=== PATIENT | male | born 1965 ===

== ENCOUNTER 2025-03-29 12:47 | Emergency (ER) | payer MEDICARE ==
[2025-03-29] MEDS ORDERED: Sodium Chloride 0.9% 10 ML Syringe FLUSH PRN (12:57)
[2025-03-29 13:11] LABS: MEAN PLATELET VOLUME 10.3 fL (6.0-10.0); PLATELET COUNT,PLT 196.0 K/uL (150-400); RED BLOOD CELL COUNT 5.0 M/uL (4.50-6.50); RED CELL DISTRIBUTION WIDTH 14.0 % (11.0-16.0); WHITE BLOOD CELL COUNT,WBC 5.2 K/uL (4.0-11.0)
[2025-03-29 13:27] LABS: CHLORIDE,CL 104.0 mmol/L (98-107); POTASSIUM,K 3.9 mmol/L (3.5-5.1)
[2025-03-29 13:51] LABS: A/G RATIO 1.1 (0.8-2.0); ALANINE AMINOTRANSFERASE,ALT 34.0 U/L (12-78); ASPARTATE AMNIOTRANSFERASE,AST 28.0 U/L (15-37); BILIRUBIN TOTAL 0.6 mg/dL (0.0-1.0); BLOOD UREA NITROGEN,BUN 17.0 mg/dL (8-26); CARBON DIOXIDE,CO2 26.3 mmol/L (21.0-32.0); CREATININE 1.23 mg/dL (0.70-1.30); EST CRCL DRUG DOSING (CG) 61.95 mL/min; ESTIMATED GFR 68.0 mL/min (>60); GLUCOSE RANDOM 87.0 mg/dL (74-100); PRO B-TYPE NATRIUR PEPT,BNPPRO 101.0 pg/mL (0-125); PROTEIN TOTAL,TP 6.6 g/dL (6.4-8.2); SODIUM,NA 138.0 mmol/L (136-145); TROPONIN I HIGH SENSITIVITY 7.2 pg/ml (<=60.4)
[2025-03-29] MEDS: Furosemide 40 MG/4 ML VIAL IVPUSH ONE (14:19)
== END 2025-03-29 14:26 | disposition home or self-care (01) ==
LOC: LB.ED 12:47
DX: R60.0 Localized edema (principal); E87.70 Fluid overload, unspecified; Z88.8 Allergy status to other drugs, medicaments and biological substances; Z79.82 Long term (current) use of aspirin; Z79.899 Other long term (current) drug therapy
CPT/HCPCS: 36415; 71045; 80053; 83735; 83880; 84484; 85027; 85379; 93005; 96374; 99285; J1938